=== PATIENT | male | born 1950 | race Caucasian/White ===

== ENCOUNTER 2016-07-29 14:59 | Inpatient (IN) | payer MEDICARE, OTHER ==
[2016-07-29] VITALS (8 sets, daily range): BP systolic 190–231; BP diastolic 95–132; PULSE 78–102; RESP 16–20; TEMP 97.9–98.2; O2SAT 97–98
[~2016-07-29] VITALS: Ht 175.3 cm; Wt 66.2 kg
[2016-07-29] MEDS ORDERED: METO50TA PO (15:17)
[2016-07-29] MEDS ORDERED: LISI10TA3 PO (15:17)
--- NOTE | 2016-07-29 15:18 | PD ---
HPI Chief Complaint: Chest Pain Time Seen by Provider: 15:17 Travel History International Travel<30 days: No Contact w/Intl Traveler<30days: No Traveled to known affect area: No History of Present Illness HPI 66-year-old male presents to the emergency department complaint of chest pain and shortness of breath that started this afternoon. He reports his blood pressures been elevated since and his primary care provider doubled his lisinopril and told him that if he developed chest pain and shortness breath to come to the ER. Does not notice chest pain and shortness breath is worse with exertion. He also reports an episode of diaphoresis earlier. He reports a slight headache. Denies change in vision. Denies nausea, vomiting. Chest pain is left-sided. Rates the pain 3/10. Says "not bad." Says the pain feels like gastric reflux. Took 2-325 mg aspirin this morning. No history of chest pain like this before. History of stress test many years ago. History of hypertension. Reports alcohol use. Denies tobacco use. Primary care provider is Dr. Peña Ibrahim. No other modifying factors or associated signs and symptoms. [facility] Past Medical History Hypertension: Yes Social History Alcohol Use: Yes (4 beers daily) Tobacco Use: No Substance Use: No Allergies-Medications (Allergen,Severity, Reaction): Coded Allergies: No Known Allergies (Unverified , 07/29/16) Reported Meds & Prescriptions Reported Meds & Active Scripts Active Reported Metoprolol Tartrate 50 Mg Tab 50 Mg PO BID Lisinopril 10 Mg Tab 10 Mg PO DAILY Review of Systems Except as stated in HPI: all other systems reviewed are Neg Physical Exam Narrative GENERAL: Well-nourished, well-developed male patient, in no acute distress SKIN: Warm and dry. HEAD: Atraumatic. Normocephalic. EYES: Pupils equal and round. No scleral icterus. No injection or drainage. ENT: Mucosa pink and moist. Airway patent. NECK: Trachea midline. CARDIOVASCULAR: Regular rate and rhythm. No murmur appreciated. RESPIRATORY: No accessory muscle use. Clear to auscultation. Breath sounds equal bilaterally. GASTROINTESTINAL: Abdomen soft, non-tender, nondistended. Hepatic and splenic margins not palpable. Bowel sounds are active 4 quadrants. MUSCULOSKELETAL: No obvious deformities. No clubbing. No cyanosis. No edema. NEUROLOGICAL: Awake and alert. Oriented 3. No obvious cranial nerve deficits. Motor grossly within normal limits. Normal speech. PSYCHIATRIC: Appropriate mood and affect; insight and judgment normal. Data Data Last Documented VS Vital Signs Date Time Temp Pulse Resp B/P Pulse Ox O2 Delivery O2 Flow Rate FiO2 07/29/16 15:22 86 18 195/95 98 Room Air 07/29/16 15:01 97.9 Orders Electrocardiogram (07/29/16 15:10) Complete Blood Count With Diff (07/29/16 15:10) Basic Metabolic Panel (Bmp) (07/29/16 15:10) Ckmb (Isoenzyme) Profile (07/29/16 15:10) Troponin I (07/29/16 15:10) Chest, Single Ap (07/29/16 15:10) Iv Access Insert/Monitor (07/29/16 15:10) Ecg Monitoring (07/29/16 15:10) Oxygen Administration (07/29/16 15:10) Oximetry (07/29/16 15:10) Labetalol Inj (Trandate Inj) (07/29/16 15:30) Prothrombin Time / Inr (Pt) (07/29/16 15:18) Act Partial Throm Time (Ptt) (07/29/16 15:18) Magnesium (Mg) (07/29/16 15:22) Labetalol Inj (Trandate Inj) (07/29/16 16:45) Admit To Inpatient (07/29/16 ) Code Status (07/29/16 16:47) Vital Signs (Adult) Q4H (07/29/16 16:47) Activity Oob With Assistance (07/29/16 16:47) Drop Hammer Pile Driver Operator / Telemetry .CONTINUOUS (07/29/16 16:47) Sodium Chloride 0.9% Flush (Ns Flush) (07/29/16 17:00) Sodium Chloride 0.9% Flush (Ns Flush) (07/29/16 21:00) Acetaminophen (Tylenol) (07/29/16 17:00) Ondansetron Inj (Zofran Inj) (07/29/16 17:00) Magnesium Hydroxide Liq (Milk Of Magnesi (07/29/16 17:00) Basic Metabolic Panel (Bmp) (07/30/16 06:00) Complete Blood Count With Diff (07/30/16 06:00) Creatine Kinase (Cpk) (07/29/16 23:00) Creatine Kinase (Cpk) (07/30/16 05:00) Troponin I (07/29/16 21:00) Troponin I (07/30/16 03:00) Electrocardiogram (07/29/16 21:00) Electrocardiogram (07/30/16 03:00) Resp Oxygen Leo C Titrat 1-4 L (07/29/16 ) Pt Request For Service (07/29/16 16:47) Scd Bilateral/Knee High AGATA.BID (07/29/16 16:47) Naloxone Inj (Narcan Inj) (07/29/16 17:00) Inpatient Certification (07/29/16 ) Npo After Midnight W/ Po Meds (07/29/16 Dinner) Myocardial Perf Pharm Sp W/Ef (07/30/16 08:00) Lipid Profile (07/30/16 06:00) Magnesium (Mg) (07/30/16 06:00) Aspirin Ec (Ecotrin Ec) (07/29/16 17:00) Nifedipine Sr (Procardia Xl) (07/30/16 09:00) Enalaprilat Inj (Vasotec Inj) (07/29/16 17:00) Clonidine (Catapres) (07/29/16 17:00) Lisinopril (Prinivil) (07/30/16 09:00) Metoprolol Tartrate (Lopressor) (07/29/16 21:00) Nifedipine Sr (Procardia Xl) (07/29/16 17:00) Labs Laboratory Tests Test 07/29/16 07/29/16 15:22 15:45 White Blood Count 7.7 TH/MM3 Red Blood Count 5.16 MIL/MM3 Hemoglobin 15.4 GM/DL Hematocrit 46.5 % Mean Corpuscular Volume 90.1 FL Mean Corpuscular Hemoglobin 29.9 PG Mean Corpuscular Hemoglobin 33.2 % Concent Red Cell Distribution Width 13.5 % Platelet Count 270 TH/MM3 Mean Platelet Volume 9.9 FL Neutrophils (%) (Auto) 52.6 % Lymphocytes (%) (Auto) 35.1 % Monocytes (%) (Auto) 10.6 % Eosinophils (%) (Auto) 0.6 % Basophils (%) (Auto) 1.1 % Neutrophils # (Auto) 4.0 TH/MM3 Lymphocytes # (Auto) 2.7 TH/MM3 Monocytes # (Auto) 0.8 TH/MM3 Eosinophils # (Auto) 0.0 TH/MM3 Basophils # (Auto) 0.1 TH/MM3 CBC Comment DIFF FINAL Differential Comment Sodium Level 141 MEQ/L Potassium Level 3.7 MEQ/L Chloride Level 105 MEQ/L Carbon Dioxide Level 25.7 MEQ/L Anion Gap 10 MEQ/L Blood Urea Nitrogen 9 MG/DL Creatinine 1.14 MG/DL Estimat Glomerular Filtration 64 ML/MIN Rate Random Glucose 99 MG/DL Calcium Level 8.9 MG/DL Magnesium Level 2.1 MG/DL Total Creatine Kinase 61 U/L Troponin I LESS THAN 0.02 NG/ML Prothrombin Time 11.2 SEC Prothromb Time International 1.0 RATIO Ratio Activated Partial 24.6 SEC Thromboplast Time MDM Medical Decision Making Medical Screen Exam Complete: Yes Emergency Medical Condition: Yes Medical Record Reviewed: Yes Differential Diagnosis AR, ACS, nonspecific chest pain, hypertension, GERD Narrative Course 66-year-old male with chest pain and shortness of breath onset this afternoon. Has been having elevated blood pressure since and his lisinopril was doubled by his primary care provider. Was told to report to the ER if he developed chest pain and shortness of breath. Patient placed on cardiopulmonary monitor. IV site obtained. EKG with normal sinus rhythm; without ST elevation or depression. CBC, BMP, coags, magnesium, CK-MB, troponin ordered. Chest x-ray ordered. Patient took aspirin this morning. Labetalol 10 mg IV ordered. 1609: Chest x-ray with no acute disease. CBC unremarkable. BMP unremarkable. Magnesium 2.1. Troponin less than 0.02. Total CK 61. 1640: Blood pressure remains elevated. Second dose of Labetalol [address] pastor aware of patient and recommends patient be admitted to medical for hypertensive emergency and follow-up with chest pain. 1645: Call out to [facility] placed for patient admission. 1658: I discussed the patient with Dr. Whitehead, [facility], for patient admission. Physician Communication Physician Communication Dr. Whitehead, [facility] Diagnosis Primary Impression: Chest pain Qualified Code: R07.9 - Chest pain, unspecified type Additional Impression: Hypertensive emergency Admitting Information Admitting Physician Requests: Admit Savannah Pierre Jul 29, 2016 15:17
[2016-07-29] MEDS ORDERED: LABETALOL HCL 100 MG/20 ML VIAL IV PUSH ONE ×2 (15:30→16:45)
[2016-07-29 15:41] LABS: BASOPHIL # 0.1 TH/MM3 (0-0.2); BASOPHIL % 1.1 % (0.0-2.0); EOSINOPHIL % 0.6 % (0.0-4.0); HEMATOCRIT 46.5 % (39.0-51.0); HEMO FLAGS DIFF FINAL; LYMPH % 35.1 % (9.0-44.0); LYMPHOCYTE # 2.7 TH/MM3 (1.0-4.8); MEAN CELL VOLUME 90.1 FL (80.0-100.0); MEAN CORPUSCULAR HEMOGLOBIN 29.9 PG (27.0-34.0); MEAN CORPUSCULAR HGB CONC 33.2 % (32.0-36.0); MONO % 10.6 % (0.0-8.0); NEUT % 52.6 % (16.0-70.0); PLATELET COUNT 270 TH/MM3 (150-450); RED BLOOD COUNT 5.16 MIL/MM3 (4.50-5.90); RED CELL DISTRIBUTION WIDTH 13.5 % (11.6-17.2); WHITE BLOOD COUNT 7.7 TH/MM3 (4.0-11.0)
--- NOTE | 2016-07-29 15:55 | RADRPT ---
EXAM DATE/TIME: 07/29/2016 15:28 [facility] COMPARISON: No previous studies available for comparison. INDICATIONS : Chest pain. MEDICAL HISTORY : Hypertension. SURGICAL HISTORY : None. ENCOUNTER: Initial ACUITY: 1 day PAIN SCORE: 0/10 LOCATION: Bilateral chest FINDINGS: A single view of the chest demonstrates the lungs to be symmetrically aerated without evidence of mas s, infiltrate or effusion. The cardiomediastinal contours are unremarkable. Osseous structures are intact. CONCLUSION: No acute disease. Ventura Bejarano MD on July 29, 2016 at 15:54 Board Certified Radiologist. This report was verified electronically.
[2016-07-29 15:57] LABS: ANION GAP 10 MEQ/L (5-15); BICARBONATE 25.7 MEQ/L (21.0-32.0); BLOOD UREA NITROGEN 9 MG/DL (7-18); CHLORIDE 105 MEQ/L (98-107); GLOMERULAR FILTRATION RATE 64 ML/MIN (>89); MAGNESIUM 2.1 MG/DL (1.5-2.5); POTASSIUM 3.7 MEQ/L (3.5-5.1); SODIUM (NA) 141 MEQ/L (136-145)
[2016-07-29 16:02] LABS: CREATINE KINASE 61 U/L (39-308)
[2016-07-29 16:25] LABS: APTT (PATIENT) 24.6 SEC (24.3-30.1); PROTHROMBIN TIME - PATIENT 11.2 SEC (9.8-11.6)
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
[2016-07-29] MEDS ORDERED: ENALAPRILAT 1.25 MG/ML VIAL IV PRN (17:00)
[2016-07-29] MEDS ORDERED: NALOXONE HCL 0.4 MG/ML AMP IV PRN (17:00)
[2016-07-29] MEDS ORDERED: cloNIDine HCL 0.2 MG TAB PO PRN (17:00)
[2016-07-29] MEDS ORDERED: SODIUM CHLORIDE 0.9% FLUSH 5 ML FLUSH FLUSH PRN (17:00)
[2016-07-29] MEDS ORDERED: MAGNESIUM HYDROXIDE SUSP 30 ML CUP PO PRN (17:00)
[2016-07-29] MEDS ORDERED: ACETAMINOPHEN 325 MG TAB PO PRN (17:00)
[2016-07-29] MEDS ORDERED: ONDANSETRON HCL 4 MG/2 ML VIAL IVP PRN (17:00)
[2016-07-29] MEDS: ASPIRIN EC 325 MG TABEC PO SCH (17:18)
--- NOTE | 2016-07-29 17:29 | PD ---
Data Data Last Documented VS Vital Signs Date Time Temp Pulse Resp B/P Pulse Ox O2 Delivery O2 Flow Rate FiO2 07/29/16 15:22 86 18 195/95 98 Room Air 07/29/16 15:01 97.9 Orders Electrocardiogram (07/29/16 15:10) Complete Blood Count With Diff (07/29/16 15:10) Basic Metabolic Panel (Bmp) (07/29/16 15:10) Ckmb (Isoenzyme) Profile (07/29/16 15:10) Troponin I (07/29/16 15:10) Chest, Single Ap (07/29/16 15:10) Iv Access Insert/Monitor (07/29/16 15:10) Ecg Monitoring (07/29/16 15:10) Oxygen Administration (07/29/16 15:10) Oximetry (07/29/16 15:10) Labetalol Inj (Trandate Inj) (07/29/16 15:30) Prothrombin Time / Inr (Pt) (07/29/16 15:18) Act Partial Throm Time (Ptt) (07/29/16 15:18) Magnesium (Mg) (07/29/16 15:22) Labetalol Inj (Trandate Inj) (07/29/16 16:45) Admit To Inpatient (07/29/16 ) Code Status (07/29/16 16:47) Vital Signs (Adult) Q4H (07/29/16 16:47) Activity Oob With Assistance (07/29/16 16:47) Television Mechanic / Telemetry .CONTINUOUS (07/29/16 16:47) Sodium Chloride 0.9% Flush (Ns Flush) (07/29/16 17:00) Sodium Chloride 0.9% Flush (Ns Flush) (07/29/16 21:00) Acetaminophen (Tylenol) (07/29/16 17:00) Ondansetron Inj (Zofran Inj) (07/29/16 17:00) Magnesium Hydroxide Liq (Milk Of Magnesi (07/29/16 17:00) Basic Metabolic Panel (Bmp) (07/30/16 06:00) Complete Blood Count With Diff (07/30/16 06:00) Creatine Kinase (Cpk) (07/29/16 23:00) Creatine Kinase (Cpk) (07/30/16 05:00) Troponin I (07/29/16 21:00) Troponin I (07/30/16 03:00) Electrocardiogram (07/29/16 21:00) Electrocardiogram (07/30/16 03:00) Resp Oxygen Loe C Titrat 1-4 L (07/29/16 ) Pt Request For Service (07/29/16 16:47) Scd Bilateral/Knee High AGATA.BID (07/29/16 16:47) Naloxone Inj (Narcan Inj) (07/29/16 17:00) Inpatient Certification (07/29/16 ) Npo After Midnight W/ Po Meds (07/29/16 Dinner) Myocardial Perf Pharm Sp W/Ef (07/30/16 08:00) Lipid Profile (07/30/16 06:00) Magnesium (Mg) (07/30/16 06:00) Aspirin Ec (Ecotrin Ec) (07/29/16 17:00) Nifedipine Sr (Procardia Xl) (07/30/16 09:00) Enalaprilat Inj (Vasotec Inj) (07/29/16 17:00) Clonidine (Catapres) (07/29/16 17:00) Lisinopril (Prinivil) (07/30/16 09:00) Metoprolol Tartrate (Lopressor) (07/29/16 21:00) Nifedipine Sr (Procardia Xl) (07/29/16 18:00) Admit Order (Ed Use Only) (07/29/16 16:59) Labs Laboratory Tests Test 07/29/16 07/29/16 15:22 15:45 White Blood Count 7.7 TH/MM3 Red Blood Count 5.16 MIL/MM3 Hemoglobin 15.4 GM/DL Hematocrit 46.5 % Mean Corpuscular Volume 90.1 FL Mean Corpuscular Hemoglobin 29.9 PG Mean Corpuscular Hemoglobin 33.2 % Concent Red Cell Distribution Width 13.5 % Platelet Count 270 TH/MM3 Mean Platelet Volume 9.9 FL Neutrophils (%) (Auto) 52.6 % Lymphocytes (%) (Auto) 35.1 % Monocytes (%) (Auto) 10.6 % Eosinophils (%) (Auto) 0.6 % Basophils (%) (Auto) 1.1 % Neutrophils # (Auto) 4.0 TH/MM3 Lymphocytes # (Auto) 2.7 TH/MM3 Monocytes # (Auto) 0.8 TH/MM3 Eosinophils # (Auto) 0.0 TH/MM3 Basophils # (Auto) 0.1 TH/MM3 CBC Comment DIFF FINAL Differential Comment Sodium Level 141 MEQ/L Potassium Level 3.7 MEQ/L Chloride Level 105 MEQ/L Carbon Dioxide Level 25.7 MEQ/L Anion Gap 10 MEQ/L Blood Urea Nitrogen 9 MG/DL Creatinine 1.14 MG/DL Estimat Glomerular Filtration 64 ML/MIN Rate Random Glucose 99 MG/DL Calcium Level 8.9 MG/DL Magnesium Level 2.1 MG/DL Total Creatine Kinase 61 U/L Troponin I LESS THAN 0.02 NG/ML Prothrombin Time 11.2 SEC Prothromb Time International 1.0 RATIO Ratio Activated Partial 24.6 SEC Thromboplast Time MDM Supervised Visit with BERNABE: Yes Narrative Course The history, exam, and medical decision-making in the associated mid-level provider note were completed with my assistance. I reviewed and agree with the findings presented. I attest that I had a [id number] encounter with the patient on the same day, and personally performed and documented my assessment and findings in the medical record. *My assessment and Findings: 66-year-old man with chest pain is setting of elevated blood pressure. Improved with beta blockers. No recent stress test. This likely hypertensive crisis. He looks otherwise well. We'll plan on admission for blood pressure control, serial cardiac enzymes, consider provocative testing. Diagnosis Primary Impression: Chest pain Qualified Code: R07.9 - Chest pain, unspecified type Additional Impression: Hypertensive emergency Alek Davis MD Jul 29, 2016 17:29
[2016-07-29] MEDS ORDERED: NITROGLYCERIN 2% OINT 1 GM PACKET TOPICAL ONE (17:45)
[2016-07-29] MEDS ORDERED: LORazepam 2 MG/ML VIAL IM PRN (17:45)
--- NOTE | 2016-07-29 18:03 | EKG ---
Date Performed: 07/29/2016 Time Performed: 15:12:56 PTAGE: 66 years EKG: Sinus rhythm POSSIBLE LEFT ATRIAL ENLARGEMENT POSSIBLE RIGHT VENTRICULAR CONDUCTION DELAY BORDERLINE ECG NO PREVIOUS TRACING DOCTOR: Demond Noonan Interpretating Date/Time 07/29/2016 18:01:56
[2016-07-29] MEDS: PANTOPRAZOLE SOD 40 MG DELAYED RELEASE TAB PO SCH (18:08)
[2016-07-29] MEDS: NIFEdipine 60 MG SUSTAINED RELEASE TAB PO SCH (18:08)
[2016-07-29] MEDS: SODIUM CHLORIDE 0.9% FLUSH 5 ML FLUSH FLUSH SCH (20:21)
[2016-07-29] MEDS: METOPROLOL TARTRATE 50 MG TAB PO SCH (20:22)
[2016-07-29 21:48] LABS: CREATINE KINASE 46 U/L (39-308)
[2016-07-30] VITALS: BP 116/64; PULSE 72; RESP 20; TEMP 97.4; O2SAT 97
[2016-07-30 03:48] LABS: AUTOMATED NEUTROPHIL # 3.4 TH/MM3 (1.8-7.7); BASOPHIL # 0.1 TH/MM3 (0-0.2); BASOPHIL % 1.1 % (0.0-2.0); EOSINOPHIL # 0.1 TH/MM3 (0-0.4); EOSINOPHIL % 1.3 % (0.0-4.0); HEMATOCRIT 40.4 % (39.0-51.0); HEMO FLAGS DIFF FINAL; LYMPH % 26.8 % (9.0-44.0); LYMPHOCYTE # 1.5 TH/MM3 (1.0-4.8); MEAN CELL VOLUME 88.8 FL (80.0-100.0); MEAN CORPUSCULAR HEMOGLOBIN 30.5 PG (27.0-34.0); MEAN CORPUSCULAR HGB CONC 34.4 % (32.0-36.0); MONO % 11.5 % (0.0-8.0); NEUT % 59.3 % (16.0-70.0); PLATELET COUNT 245 TH/MM3 (150-450); RED BLOOD COUNT 4.56 MIL/MM3 (4.50-5.90); RED CELL DISTRIBUTION WIDTH 13.2 % (11.6-17.2); WHITE BLOOD COUNT 5.7 TH/MM3 (4.0-11.0)
[2016-07-30 04:00] VITALS: BP 127/72; PULSE 84; RESP 20; TEMP 97.9; O2SAT 97
[2016-07-30 04:03] LABS: ANION GAP 8 MEQ/L (5-15); BICARBONATE 27.6 MEQ/L (21.0-32.0); BLOOD UREA NITROGEN 9 MG/DL (7-18); CHLORIDE 106 MEQ/L (98-107); GLOMERULAR FILTRATION RATE 77 ML/MIN (>89); MAGNESIUM 2.1 MG/DL (1.5-2.5); POTASSIUM 3.7 MEQ/L (3.5-5.1); SODIUM (NA) 142 MEQ/L (136-145)
[2016-07-30 04:06] LABS: HDL CHOLESTEROL 57.9 MG/DL (40.0-60.0); LDL CHOLESTEROL 123 MG/DL (0-99)
[2016-07-30 04:08] LABS: CREATINE KINASE 49 U/L (39-308)
[2016-07-30 08:00] VITALS: BP 106/56; PULSE 83; PULSE 88; RESP 20; TEMP 98; O2SAT 97
--- NOTE | 2016-07-30 08:13 | EKG ---
Date Performed: 07/29/2016 Time Performed: 21:39:14 PTAGE: 66 years EKG: Sinus rhythm NORMAL ECG No significant change from prior electrocardiogram. PREVIOUS TRACING : 07/29/2016 15.12 DOCTOR: Demond Noonan Interpretating Date/Time 07/30/2016 08:12:22
[2016-07-30] MEDS ORDERED: NIFEdipine 60 MG SUSTAINED RELEASE TAB PO SCH (09:00)
[2016-07-30] MEDS ORDERED: LISINOPRIL 10 MG TAB PO SCH (09:00)
[2016-07-30] MEDS: PANTOPRAZOLE SOD 40 MG DELAYED RELEASE TAB PO SCH (09:23)
[2016-07-30] MEDS: METOPROLOL TARTRATE 50 MG TAB PO SCH (09:23)
[2016-07-30] MEDS: ASPIRIN EC 325 MG TABEC PO SCH (09:23)
[2016-07-30] MEDS: NIFEdipine 60 MG SUSTAINED RELEASE TAB PO SCH (09:23)
[2016-07-30] MEDS: SODIUM CHLORIDE 0.9% FLUSH 5 ML FLUSH FLUSH SCH (09:26)
--- NOTE | 2016-07-30 11:03 | EKG ---
Date Performed: 07/30/2016 Time Performed: 03:47:50 PTAGE: 66 years EKG: Baseline artifact is present. Sinus rhythm . Inferior T wave changes are nonspecific Low QRS voltages in limb leads Borderline ECG NO PREVIOUS TRACING DOCTOR: Demond Noonan Interpretating Date/Time 07/30/2016 11:02:22
[2016-07-30] MEDS ORDERED: REGADENOSON INJ 0.4 MG/5 ML SYR ONE (11:28)
--- NOTE | 2016-07-30 12:56 | RADRPT ---
EXAM DATE/TIME: 07/30/2016 11:19 [facility] COMPARISON: No previous studies available for comparison. INDICATIONS : Substernal chest pain with dyspnea and diaphoresis. Angina. DOSE: 25.4 mCi Tc99m Myoview at stress. 8.5 mCi Tc99m Myoview at rest. 0.4 mg Lexiscan STRESS SYMPTOMS: Abdominal pain. EJECTION FRACTION: 69% MEDICAL HISTORY : Hypertension. SURGICAL HISTORY : Neck surgery. ENCOUNTER: Initial ACUITY: 1 day PAIN SCALE: 3/10 LOCATION: Substernal chest TECHNIQUE: The patient underwent pharmacologic stress with infusion of prescribed dose. Continuous ECG tracing was monitored during stress. Gated SPECT imaging was performed after stress and conventional SPECT i maging was performed at rest. The examination was performed on a SPECT/CT scanner, both attenuation and non-corrected datasets were reviewed. FINDINGS: DISTRIBUTION: The maximum perfused segment at stress is in the anterior wall. PERFUSION STUDY: The pattern of perfusion at stress is within normal limits. GATED STUDY: There is intact wall motion and thickening without hypokinetic or dyskinetic segments. CONCLUSION: No reversible perfusion defects to suggest ischemia. Normal ejection fraction. RISK CATEGORY: Low (<1% Annual Mortality Rate) Sanju Figueroa MD on July 30, 2016 at 12:54 Board Certified Radiologist. This report was verified electronically.
[2016-07-30] MEDS ORDERED: ADAL30TA5 PO (13:47)
[2016-07-30] MEDS ORDERED: LISI-515 PO (13:47)
[2016-07-30] MEDS ORDERED: PRIL20CA9 PO (13:48)
--- NOTE | 2016-07-30 13:53 | HHI.PR ---
Subjective Remarks No chest pain today. Objective Vitals Vital Signs Date Time Temp Pulse Resp B/P Pulse Ox O2 Delivery O2 Flow Rate FiO2 07/30/16 08:00 98.0 88 20 106/56 97 07/30/16 04:00 97.9 84 20 127/72 97 07/30/16 00:00 97.4 72 20 116/64 97 07/29/16 20:00 88 07/29/16 20:00 98.2 84 20 97 07/29/16 17:20 87 18 190/108 97 Room Air 07/29/16 15:22 86 18 195/95 98 Room Air 07/29/16 15:14 96 Room Air 07/29/16 15:14 98 Room Air 07/29/16 15:11 95 16 223/109 97 Room Air 07/29/16 15:07 102 18 98 07/29/16 15:02 213/107 07/29/16 15:01 97.9 78 18 231/132 98 07/29/16 07/29/16 07/30/16 15:00 23:00 07:00 Intake Total 0 ml Balance 0 ml Intake Oral 0 ml # Voids 2 Result Diagram: 07/30/16 0328 07/30/16 0328 Imaging Last Impressions Myocardial Perfusion Scan Nuc Med 07/30/16 0800 Signed Impressions: Service Date/Time: Saturday, July 30, 2016 11:19 - CONCLUSION: No reversible perfusion defects to suggest ischemia. Normal ejection fraction. RISK CATEGORY : Low (<1%% Annual Mortality Rate) Sanju Figueroa MD Chest X-Ray 07/29/16 1510 Signed Impressions: Service Date/Time: Friday, July 29, 2016 15:28 - CONCLUSION: No acute disease. Ventura Bejarano MD Objective Remarks GENERAL: This is a well-nourished, well-developed patient, in no apparent distress. CARDIOVASCULAR: Regular rate and rhythm without murmurs, gallops, or rubs. RESPIRATORY: Clear to auscultation. Breath sounds equal bilaterally. No wheezes , rales, or rhonchi. GASTROINTESTINAL: Abdomen soft, non-tender, nondistended. Normal active bowel sounds MUSCULOSKELETAL: Extremities without clubbing, cyanosis, or edema. NEURO: Alert & Oriented x4 to person, place, time, situation. Moves all ext x4 A/P Problem List: (1) Hypertensive emergency Status: Acute Plan: - resolved - continue outpt metoprolol 50mg BID - continue outpt lisinopril at dose of 20mg BID - upon discharge continue procardia XL at 30mg Daily - maintain low salt diet - keep home BP log - f/u with PCP, Dr. Rajiv Hyman in 1 week. (2) Chest pain Status: Acute Plan: - serial cardiac enzymes --> NOT elevated - serial EKGs --> NO acute ischemic changes - Lexiscan (07/30/16) --> NO reversible perfusion defects - upon discharge continue on PPI, prilosec 20mg daily - f/u with [facility], Dr. Alek Garza in 2 weeks - obtain outpt echocardiogram - LDL (07/30/16) 123, observe Problem Qualifiers (1) Chest pain: Qualified Code: R07.9 - Chest pain, unspecified type Jak Whitehead DO Jul 30, 2016 13:53
--- NOTE | 2016-07-30 13:53 | HHI.DCPOC ---
Discharge Care Plan Diagnosis: (1) Chest pain (2) Hypertensive emergency Goals to Promote Your Health * To prevent worsening of your condition and complications * To maintain your health at the optimal level Directions to Meet Your Goals Take your medications as prescribed Follow your dietary instruction Follow activity as directed Keep your appointments as scheduled Take your immunizations and boosters as scheduled If your symptoms worsen call your PCP, if no PCP go to Urgent Care Center or Emergency Room Smoking is Dangerous to Your Health. Avoid second hand smoke Call the 24-hour hour crisis hotline for domestic abuse at Jak Whitehead DO Jul 30, 2016 13:53
== END 2016-07-30 14:44 | disposition home or self-care (01) | DRG 305 ==
LOC: NEPA 14:59 → NEDA 17:01 → N04B 18:40
PROVIDERS: ADMIT Hospitalist; ATTEND Hospitalist
DX: I16.1 Hypertensive emergency (principal); G89.29 Other chronic pain; R07.9 Chest pain, unspecified; I10 Essential (primary) hypertension; H91.93 Unspecified hearing loss, bilateral; M54.2 Cervicalgia
CPT/HCPCS: 71010; 78452; 80048; 80061; 82550; 83735; 84484; 85025; 85610; 85730; 93005; 93017; 96374; A9502; J2785